=== PATIENT | male | born 1980 | race Caucasian/White ===

== ENCOUNTER → 2017-12-08 | Outpatient (CLI) | payer BC | END | disposition home or self-care (01) | LOC: RAD 07:11 | PROVIDERS: ATTEND Otolaryngology Facial Plastic Surgery | DX: J32.0 Chronic maxillary sinusitis (principal); J34.2 Deviated nasal septum; T17 Foreign body in respiratory tract | CPT/HCPCS: 70486 ==

== ENCOUNTER → 2018-01-06 | Outpatient (CLI) | payer BC ==
[~2018-01-06] MED LIST: None per pt
[2018-01-06 13:14] LABS: BASOPHILS # (AUTO) 0.02 x10^3/uL (0-0.1); BASOPHILS % (AUTO) 0 % (0-1); EOSINOPHILS # (AUTO) 0.09 x10^3/uL (0-0.4); EOSINOPHILS % (AUTO) 2 % (1-7); LYMPHOCYTES % (AUTO) 32 % (22-44); MD NO; MEAN CORPUSCULAR HEMOGLOBIN 29.4 pg (27.5-34.5); MEAN CORPUSCULAR HGB CONC 33.9 g/dL (33.2-36.2); MEAN CORPUSCULAR VOLUME 86.8 fL (81-97); MEAN PLATELET VOLUME 7.3 fL (7.4-10.4); MONOCYTES # (AUTO) 0.37 x10^3/uL (0.2-0.8); MONOCYTES % (AUTO) 6 % (2-9); NEUTROPHILS # (AUTO) 3.66 x10^3/uL (1.8-6.8); NEUTROPHILS % (AUTO) 61 % (42-75); PLATELET COUNT 345 x10^3/uL (130-400); RED BLOOD COUNT 5.34 x10^6/uL (4.38-5.82); RED CELL DISTRIBUTION WIDTH 13.9 % (9.4-14.8)
[2018-01-06 13:26] LABS: ANION GAP 4 mmol/L (5-15); CALCIUM 8.5 mg/dL (8.5-10.1); CHLORIDE 111 mmol/L (98-107); CREATININE 1.02 mg/dL (0.7-1.3)
== END | disposition home or self-care (01) ==
LOC: STAR 12:28
PROVIDERS: ATTEND Otolaryngology Facial Plastic Surgery
DX: Z01.818 Encounter for other preprocedural examination (principal); J32.0 Chronic maxillary sinusitis; J34.3 Hypertrophy of nasal turbinates; J32.2 Chronic ethmoidal sinusitis; J34.2 Deviated nasal septum
CPT/HCPCS: 36415; 71046; 80048; 85025; 93005

== ENCOUNTER 2018-01-12 06:29 | Day surgery (SDC) | payer BC ==
[~2018-01-12] VITALS: Ht 188 cm; Wt 99.2 kg
[2018-01-12] MEDS ORDERED: MUPIROCIN OINT 2%, 22GM ONE (07:06)
[2018-01-12] MEDS ORDERED: COCAINE TOPICAL SOLN 4%, 4ML ONE (07:06)
[2018-01-12] MEDS ORDERED: LIDOCAINE-MPF 1%, 5ML ONE (07:07)
[2018-01-12] MEDS ORDERED: EPINEPHRINE 1 MG/ML, 1ML ONE (07:07)
[2018-01-12] MEDS ORDERED: LACTATED RINGERS 1,000 ML IV SCH (07:34)
[2018-01-12] MEDS ORDERED: LIDOCAINE-MPF 1%, 2ML ONE (07:36)
[2018-01-12] MEDS ORDERED: LIDOCAINE-MPF 1%, 2ML INFIL ONE (08:00)
[2018-01-12] MEDS ORDERED: MIDAZOLAM 1 MG/ML, 2ML ONE (08:46)
[2018-01-12] MEDS ORDERED: FENTANYL PF 250 MCG/5ML ONE (08:47)
[2018-01-12] MEDS ORDERED: LIDOCAINE-MPF 2% ,5ML ONE (08:48)
[2018-01-12] MEDS ORDERED: PROPOFOL 10 MG/ML, 20ML ONE ×2 (08:48→08:58)
[2018-01-12] MEDS ORDERED: OXYMETAZOLINE NASAL SPRAY 0.05%, 15ML ONE (08:50)
[2018-01-12] MEDS ORDERED: ONDANSETRON 2MG/ML, 2ML ONE ×3 (08:58→10:15)
[2018-01-12] MEDS ORDERED: DEXAMETHASONE 4 MG/ML, 1ML ONE (08:58)
[2018-01-12] MEDS ORDERED: ROCURONIUM 10MG/ML,5ML ONE (08:58)
[2018-01-12] MEDS ORDERED: ONDANSETRON 2MG/ML, 2ML IVPush PRN (09:30)
[2018-01-12] MEDS ORDERED: PROMETHAZINE 12.5 MG SUPP PR PRN (09:30)
[2018-01-12] MEDS ORDERED: MEPERIDINE/PF 25MG/0.5ML IVPush PRN (09:30)
[2018-01-12] MEDS ORDERED: LABETALOL 5MG/ML, 20ML IV PRN (09:30)
[2018-01-12] MEDS ORDERED: OXYcodone 5 MG/5 ML ORAL.SOL UDC PO PRN (09:30)
[2018-01-12] MEDS ORDERED: FENTANYL PF 100 MCG/2ML IV PRN (09:30)
[2018-01-12] MEDS ORDERED: morphine SULFATE 10 MG/ML, 1ML IV PRN (09:30)
[2018-01-12] MEDS ORDERED: ACETAMINOPHEN 325 MG TABLET PO PRN (09:30)
[2018-01-12] MEDS ORDERED: hydrALAzine 20 MG/ML, 1ML IV PRN (09:30)
[2018-01-12] MEDS ORDERED: LORazepam 2 MG/ML, 1ML IVPush PRN (09:30)
[2018-01-12] MEDS ORDERED: morphine SULFATE 10 MG/ML, 1ML ONE (10:50)
[2018-01-12] MEDS ORDERED: ACETAMINOPHEN 650 MG/20.3 ML UDC ONE (11:45)
[2018-01-12] MEDS ORDERED: OXYcodone 5 MG/5 ML ORAL.SOL UDC ONE (11:46)
[2018-01-12] MEDS ORDERED: PROMETHAZINE 25 MG/ML, 1ML ONE (14:58)
[2018-01-12] MEDS ORDERED: PROMETHAZINE 25 MG/ML, 1ML IM PRN (15:00)
== END 2018-01-12 17:00 ==
LOC: OUT 06:29
PROVIDERS: ATTEND Otolaryngology Facial Plastic Surgery
DX: J32.0 Chronic maxillary sinusitis (principal); J32.2 Chronic ethmoidal sinusitis; J34.2 Deviated nasal septum; J34.3 Hypertrophy of nasal turbinates; Z88.8 Allergy status to other drugs, medicaments and biological substances
CPT/HCPCS: 30520; 31240; 31254; 31267; 87070; 87075; 87102; 87205; 88304; 88305; 88311; J0171; J1100; J2250; J2270; J2405; J2550; J2704; J3010; J3490; J7120; 87077

== ENCOUNTER → 2018-04-11 | Outpatient (CLI) | payer BC | LOC: RAD 15:06 | PROVIDERS: ATTEND Family Medicine | DX: M23.221 Derangement of posterior horn of medial meniscus due to old tear or injury, right knee (principal); M25.461 Effusion, right knee ==